=== PATIENT | female | born 1945 | race Hispanic/Latino ===

== ENCOUNTER 2019-06-05 09:20 | Day surgery (SDC) | payer OTHER ==
--- OUTSIDE RECORDS SUMMARY | 2019-06-05 09:27 | XMS REPORT ---
:1945 Author Organization [facility] Address [address] [place] [address] Dr. Porter [address] [place] [address] Care Team Providers Name Role Phone Unavailable Unavailable Unavailable Problems This patient has no known problems. Allergies, Adverse Reactions, Alerts This patient has no known allergies or adverse reactions. Medications This patient has no known medications.
[2019-06-05 09:41] VITALS: TEMP 97.5; O2SAT 100; BMI 21.2
[2019-06-05 09:46] LABS: Hematocrit 26.8 % (36.0-45.0)
[2019-06-05] MEDS ORDERED: EPOETIN ALFA-EPBX 10,000 UNIT/ML VIAL ONE (09:55)
[2019-06-05 10:09] VITALS: BP 221/73
== END 2019-06-05 10:05 | disposition home or self-care (01) ==
LOC: DS 09:20
PROVIDERS: ATTEND Internal Medicine
DX: N18.5 Chronic kidney disease, stage 5 (principal); D63.1 Anemia in chronic kidney disease; D50.9 Iron deficiency anemia, unspecified
CPT/HCPCS: 36415; 85018; 85014; 96372; J0583

== ENCOUNTER 2020-04-20 10:59 | Day surgery (SDC) | payer OTHER ==
--- OUTSIDE RECORDS SUMMARY | 2020-04-20 11:01 | XMS REPORT | Clinical Summary ---
:1945 Author Organization [facility] Address [address] [place] [address] Care Team Providers Name Role Phone Asked, No Pcp Primary Care Provider Unavailable Allergies No Known Active Allergies Medications Medication Sig Dispensed Refills Start Date End Date Status ERGOCALCIFEROL, daily. 0 05/11/2019 Act samuel VITAMIN D2, ORAL rosuvastatin Take 20 mg by 0 03/25/2020 Ac tive (CRESTOR) 20 mg mouth every tablet evening. calcitrioL Take 0.25 mcg by 0 03/22/2020 A ctive (ROCALTROL) 0.25 mouth every other MCG capsule day. dorzolamide take as directed. 0 01/26/2020 Active (TRUSOPT) 2 % ophthalmic solution insulin DETEMIR as needed. Have 0 12/05/2018 Active (LEVEMIR) 100 not used in last unit/mL (3 mL) 8 -10 months- insulin pen Sugar is well controlled by diet per patient docusate sodium Take 1 capsule 14 capsule 0 04/07/2020 020 (Colace) 100 MG (100 mg total) by capsule mouth 2 (two) times a day for 7 days. acetaminophen-codei Take 1 tablet by 15 tablet 0 04/07/2020 ne (TYLENOL WITH mouth every 8 CODEINE #3) 300-30 (eight) hours as mg per needed for tabletIndications: moderate pain for acute pain up to 5 days .acute pain. Active Problems Problem Noted Date ESRD (end stage renal disease) 03/29/2020 Overview: Added automatically from request for megan fox [id number] Encounters Date Type Specialty Care Team Description 04/07/2020 Anesthesia Event General Surgery Adelaida Tarango MD Cheema, Ivelisse, DIRECTOR PHONE 04/07/2020 Surgery General Surgery Trini, Hal Virk MD peritoneal di alysis catheter placem ent. 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 Jeffery Virk MD kidney diseas e not on chronic dialysi s (HCC) (Primary Dx) 03/29/2020 Prep for Surgery General Surgery Tori Rojas ESRD ( end stage renal P, MA disease) (HCC) (Primary Dx) 03/29/2020 Travel 03/14/2020 Travel after 04/20/2019 Surgical History Surgery Date Site/Laterality Comments CATARACT EXTRACTION W/ INTRAOCULAR LENS IMPLANT, BILATERAL OTHER SURGICAL HISTORY EAR SURGE RY - TO FIX A HOLE IN RIGHT EA R BREAST SURGERY 06/10/1986 - Right right breast rem janay 06/09/1987 (CHEMO SAME YEAR ) INSERTION, CATHETER, 04/07/2020 Abdomen/N/A Procedure: Laparoscopic DIALYSIS, PERITONEAL, peritoneal dialysis LAPAROSCOPIC catheter placeme nt.; Surgeon: Jeffery Wright MD; Location: [facility]; Service: General ; Laterality: N/A; Medical History Medical History Date Comments History of breast cancer Renal insufficiency DR RAMOS Hypercholesteremia Type 2 diabetes mellitus (HCC) DIET WHIT GED Wears dentures UPPER Wears glasses Does use hearing aid LEFT Limb alert care status DO NOT RIGHT ARM ARM --LYMPH NODES REMOVED Exercise tolerance finding WALKING AND D OES ALL HOUSE WORK --NO CHEST PAIN Family History Medical History Relation Name Comments Diabetes Maternal Grandmother Relation Name Status Comments Maternal Grandmother Social History Tobacco Use Types Packs/Day Years Used Date Never Smoker Smokeless Tobacco: Never Used Alcohol Use Drinks/Week oz/Week Comments Never Alcohol Habits Answer Date Recorded How often do you have a drink containing alcohol? Never 03/29/2020 How many drinks containing alcohol do you have on a typical Not asked 03/29/2020 day when you are drinking? How often do you have six or more drinks on one occasion? Ne katelynn 03/29/2020 Sex Assigned at Date Recorded Not on file COVID-19 Exposure Response Date Recorded In the last month, have you been in contact with No / Unsure 04/04/2020 10:09 AM CDT someone who was confirmed or suspected to have Coronavirus / COVID-19? Obstetrics History Grav Para Term Pre Abrt (TAB) (SAB) (Ect) Mult Lvng Comments 3 3 3 0 0 0 0 0 0 3 Date Outcome GA Total Labor/2nd/3rd Weight Sex Delivery Anes PTL Karla A 1 A5 Name Clin Labor Term Term Term Last Filed Vital Signs Vital Sign Reading Time Taken Comments Blood Pressure 154/69 04/07/2020 4:15 PM CDT Pulse 75 04/07/2020 4:15 PM CDT Temperature 36.5 C (97.7 F) 04/07/2020 3:14 PM CDT Respiratory Rate 18 04/07/2020 4:15 PM CDT Oxygen Saturation 99% 04/07/2020 4:15 PM CDT Inhaled Oxygen Concentration - - Weight 55.3 kg (122 lb) 04/04/2020 10:28 AM CDT Height 161.9 cm (5' 3.75") 04/04/2020 10:28 AM CDT Body Mass Index 21.11 04/04/2020 10:28 AM CDT Plan of Treatment Health Maintenance Due Date Last Done Comments BREAST CANCER SCREENING 1996 COLONOSCOPY SCREENING 1996 SHINGLES VACCINES (#1) 1996 65+ PNEUMOCOCCAL VACCINE (1 of 1 - PPSV23) 2011 INFLUENZA VACCINE 01/09/2020 Procedures Procedure Name Priority Date/Time Associated Comments Diagnosis POC GLUCOSE Routine 04/07/2020 1:33 Results for this PM CDT procedure are i n the results section. MT AN ELECTIVE Routine 04/07/2020 12:07 Results f or this ENDOTRACHEAL AIRWAY PM CDT procedur e are in the results section. SODIUM LEVEL Routine 04/07/2020 10:10 Results for this AM CDT procedure are i n the results section. ESTIMATED GFR STAT 04/07/2020 8:54 Results fo r this AM CDT procedure are i n the results section. BASIC METABOLIC PANEL STAT 04/07/2020 8:54 Re sults for this AM CDT procedure are i n the results section. POC PANEL Routine 04/07/2020 8:49 Results for this AM CDT procedure are i n the results section. ABO AND RH CONFIRMATION Routine 04/07/2020 8:41 Results for this AM CDT procedure are i n the results section. ECG PRE/POST OP Routine 04/04/2020 11:19 Preop testing Results for this AM CDT procedure are i n the results section. PARTIAL THROMBOPLASTIN Routine 04/04/2020 10:49 Preop testing Results for this TIME (PTT) AM CDT procedure are i n the results section. PROTHROMBIN TIME WITH Routine 04/04/2020 10:49 Preop testing R esults for this INR AM CDT procedure are i n the results section. COVID-19 QUALITATIVE Routine 04/04/2020 10:48 Preop testing Re sults for this PCR AM CDT procedure are i n the results section. ESTIMATED GFR Routine 04/04/2020 10:47 Results fo r this AM CDT procedure are i n the results section. TYPE AND SCREEN Routine 04/04/2020 10:47 Preop testing Results for this AM CDT procedure are i n the results section. HEMOGLOBIN A1C Routine 04/04/2020 10:47 Preop testing Results for this AM CDT procedure are i n the results section. BASIC METABOLIC PANEL Routine 04/04/2020 10:47 Preop testing R esults for this AM CDT procedure are i n the results section. HC COMPLETE BLD COUNT Routine 04/04/2020 10:47 Preop testing R esults for this W/AUTO DIFF AM CDT procedure are i n the results section. after 04/20/2019 Results POC glucose (04/07/2020 1:33 PM CDT) Pathologist Sig nature POC glucose 151 (H) 65 - 99 mg/dL [facility] Comment: [facility] Taker Off Hemp Fiber Name: Juarez Fritz Device ID: [id number] Chartable: RN Notified Specimen Blood Performing Organization Address City/State/ZIP Code Phon e Number [facility] DEPARTMENT OF PATHOLOGY [address] [place] [address] AND GENOMIC MEDICINE [facility] G[facility] [place] [address] [facility] [place] [address] H[facility]PITAL Airway (04/07/2020 12:07 PM CDT) Narrative Performed At Adelaida Tarango MD 020 12:08 PM Airway Date/Time: 04/07/2020 12:04 PM Performed by: Adelaida Tarango MD Authorized by: Adelaida Tarango M D Location: OR Urgency: Elective Difficult Airway: No Anesthesiologist: Adelaida Tarango MD Performed by: anesthesiologist Preoxygenated with 100% O2: Yes C-spine Precautions Maintained Throughou t: Yes Mask Ventilation: Easy mask (with oral airway) Final Airway Type: Endotracheal airway Final Endotracheal Airway: ETT Cuffed: Yes Technique Used: Direct laryngoscopy Devices/Methods Used in Placement: Int ubating stylet Insertion Site: Oral Blade Type: Mk Laryngoscope Blade/Videolaryngoscope Wu de Size: 3 ETT Size (mm): 7.0 Cuff at minimum occlusion pressure: Yes Measured from: Teeth ETT to Teeth (cm): 22 Placement Verified by: CO2 detection and direct visualization Laryngoscopic view: Grade IIb - view o f arytenoids or posterior of glottis only Rapid Sequence Induction (RSI): Yes Modified RSI: No Number of Attempts at Approach: 1 Sodium level (04/07/2020 10:10 AM CDT) Pathologist [facility] nature Sodium 142 135 - 148 mEq/L [facility] AND [facility] Specimen Plasma Performing Organization Address City/State/ZIP Code Phon e Number [facility] DEPARTMENT OF PATHOLOGY [address] [facility] [address] AND [facility] [id number] [place] [address] HOSPITAL Estimated GFR (04/07/2020 8:54 AM CDT)Only the most recent of2 resultswithin the time period is included. Estimated GFR 7 (A) mL/min/1.73 [facility] Comment: m2 [facility] Catergory Units Interpretation HOS PITAL G1 >=90 Normal or high G2 60-89 Mildly decreased G3a 45-59 Mildly to moderately decreas ed G3b 30-44 Moderately to severely decre ased G4 15-29 Severely decreased G5 <15 Kidney failure The eGFR was calculated using the Chronic Kidney Disea se Epidemiology Collaboration (CKD-EPI) equation. Interpretation is based on recommendations of the National Kidney Foundation-Kidney Disease Outcomes Sarbjit lity Initiative (NKF-KDOQI) published in 2014. Specimen Plasma Performing Organization Address [facility] Phon e Number [facility] DEPARTMENT OF PATHOLOGY [address] [place] [address] Basic metabolic panel (04/07/2020 8:54 AM CDT)Only the most recent of2 results within the time period is included. Pathologist Sig nature Sodium 120 (LL) 135 - 148 mEq/L [facility] Comment: [facility] NA,CL results called to and read back by NYDIA AVITIA RN MELIA 04/07/2020 09:57 JH Potassium 4.1 3.5 - 5.0 mEq/L [facility] Chloride 108 98 - 112 mEq/L [facility] CO2 19 (L) 24 - 31 mEq/L [facility] Anion gap -7@ANIO (L) 7 - 15 mEq/L [facility] BUN 55 (H) 8 - 23 mg/dL [facility] Creatinine 5.84 (H) 0.50 - 0.90 [facility] mg/dL [facility] Glucose 121 (H) 65 - 99 mg/dL [facility] Calcium 9.2 8.8 - 10.2 mg/dL [facility] Specimen Plasma Performing Organization Address City/[facility]/ZIP [facility] [place] [place] Phon e Number [facility] DEPARTMENT OF PATHOLOGY [address] [place] [address] POC panel (04/07/2020 8:49 AM CDT) POC sodium 140 135 - 148 [facility] mmol/L [facility] POC potassium 4.1 3.5 - 5.0 [facility] mmol/L [facility] POC glucose 113 (H) 65 - 99 mg/dL [facility] Comment: [place] Taker Off Hemp Fiber Name: [facility] Device ID: [id number] POC hemoglobin 8.8 (L) 12.0 - 16.0 [facility] g/dL [facility] POC hematocrit 26 (L) 37 - 47 % [facility] Specimen Blood Performing Organization Address [facility] Phon e Number [facility] DEPARTMENT OF PATHOLOGY [id number] [place] [address] [address] [place] [address] [facility] ABO and Rh confirmation (04/07/2020 8:41 AM CDT) Pathologist Sig nature ABO grouping O [facility] Rh type POS [facility] Specimen Plasma Performing Organization Address [facility] Phon e Number [facility] DEPARTMENT OF PATHOLOGY [id number] [place] [address] [address] [address] HOSPITAL ECG Pre/Post Op (04/04/2020 11:19 AM CDT) Pathologist Sig nature Ventricular rate 75 [facility] Atrial rate 75 [facility] MT interval 136 [facility] QRSD interval 88 [facility] QT interval 458 [facility] QTC interval 511 [facility] P axis 1 72 [facility] QRS axis 1 49 [facility] T wave axis 77 [facility] EKG impression Normal sinus [facility] rhythm-Prolonged QT-Abnormal ECG-No previous ECGs available-Electronicall y Signed By Madhu Palmer MD ([id number]) on 04/04/2020 3:19:18 PM Specimen Narrative Performed At This result has an attachment that is no t available. Performing Organization Address [facility] Phon e Number [facility] MUSE [address] [place] [address] Partial thromboplastin time, activated (04/04/2020 10:49 AM CDT) PTT 29.3 23.0 - 36.0 [facility] Comment: sec [place] PTT therapeutic range for unfractionated heparin is HOSPITAL 61.0-112.0 seconds which corresponds to Anti-Xa 0.3-0.7 U/ml. Specimen Blood Performing Organization Address [facility] Code Phon e Number [facility] DEPARTMENT OF PATHOLOGY [id number] [place] [address] AND [facility] [id number] [place] [address] [facility] Prothrombin time with INR (04/04/2020 10:49 AM CDT) Prothrombin time 13.9 11.5 - 14.5 [facility] INR 1.1 [place] Comment: [facility] International Normalized Ratio (INR) is a therapeu [facility] monitoring tool for patients who are stable on oral anticoagulant therapy. An INR of 2.0-3.0 is suggested for deep vein thrombosis/pulmonary embolism. Specimen Blood Performing Organization Address [facility] Phon e Number [facility] DEPARTMENT OF PATHOLOGY [address] [facility] [place] [address] AND [facility] [address] [facility] [place] [address] HOSPITAL COVID-19 qualitative PCR (04/04/2020 10:48 AM CDT) Pathologist [facility] Interpretation Negative results do not prec lude 2019-nCoV infection and should not be used as the sole basis for treatment or other patient management decisions. Negative results must be combined with clinical observations, patient history, and epidemiological [place] information. [facility] COVID-19 qualitative Not-Detected Not-Detecte [place] PCR result d [facility] COVID-19 qualitative See link below for [place] PCR PDF Lab [facility] ReportComment: Case HOSPITAL Number: [id number] Specimen Nasal swab Performing Organization Address [facility] Phon e Number [facility] DEPARTMENT OF PATHOLOGY AND [address], [place] [address] [place] [id number] [place] [address] [facility] CBC with platelet and differential (04/04/2020 10:47 AM CDT) WBC 8.5 4.5 - 11.0 k/uL [facility] RBC 2.56 (L) 4.20 - 5.50 [facility] m/uL [facility] HGB 7.9 (L) 12.0 - 16.0 [facility] g/dL [facility] HCT 23.9 (L) 37.0 - 47.0 % [facility] MCV 93.4 82.0 - 100.0 fL [facility] MCH 30.9 27.0 - 34.0 pg [facility] MCHC 33.1 31.0 - 37.0 [facility] g/dL [facility] RDW - SD 43.8 37.0 - 55.0 fL [facility] MPV 12.8 (H) 6.9 - 11.0 fL [facility] Platelet count 105 (L) 150 - 400 K/uL [facility] Nucleated RBC 0.00 /100 WBC [facility] Neutrophils 72.2 (H) 39.0 - 69.0 % [facility] Lymphocytes 16.6 (L) 25.0 - 45.0 % [facility] Monocytes 6.6 0.0 - 10.0 % [facility] Eosinophils 3.7 0.0 - 5.0 % [facility] Basophils 0.7 0.0 - 1.0 % [facility] Immature granulocytes 0.2 0.0 - 1.0 % [facility] Specimen Plasma Performing Organization Address City/[facility] Phon e Number [facility] DEPARTMENT OF PATHOLOGY [id number] [place] [address] AND [place] [id number] HOSPITAL Type and screen (04/04/2020 10:47 AM CDT) Pathologist Sig nature ABO grouping O [facility] Rh type POS [facility] Antibody screen (gel) [facility] Specimen Plasma Performing Organization Address [facility] Phon e Number [facility] DEPARTMENT OF PATHOLOGY [address] [place] [address] Hemoglobin A1c (04/04/2020 10:47 AM CDT) Hemoglobin A1C 5.4 4.0 - 5.6 % [facility] Comment: [place] HbA1c cutoffs for diagnosing diabetes: HO SPITAL 4.0% - 5.6% = normal 5.7% - 6.4% = increased risk for diabetes (prediabetes )9 >=6.5% = diabetes9 Goals for glycemic control (ADA 2016) < 7.0% Target for non adults with diabetes. More or less stringent targets may be appropriate for individual patients. <7.5% Target for Children and adolescents with type 1 diabetes. Specimen Blood Performing Organization Address City/State/ZIP Code Phon e Number [facility] DEPARTMENT OF PATHOLOGY [address] [facility] [place] [address] AND GENOMIC MEDICINE [facility]NY GERBER [place] [address] [facility] 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
--- OUTSIDE RECORDS SUMMARY | 2020-04-20 11:02 | XMS REPORT | Continuity of Care Document ---
:1945 Author Organization [facility] t Address [address] [place] [address] [address] [place] [address] Care Team Providers Name Role Phone Asked, Pcp Primary Care Physician Unavailable Sully Feliz MD Attending Clinician Emelina MANDUJANO, Raciel Attending Clinician Debbi SALDIVAR Attending Clinician Samantha MANDUJANO Attending Clinician Geno Rojas MA Attending Clinician Unavailable Tara MANDUJANO, A Attending Clinician Harshad MANDUJANO, A Attending Clinician JAVAN Admitting Clinician Unavailable Payers Payer Name Policy Type Policy Effective Date Expiration Date Sour ce Number MEDICAREMEDICARE PART [id number] Monico Duarte AND 00:00:00 Yazidi [id number] 2010 [place], [place] [id number] Jason heck OF 00:00:00 Yazidi [id number] 5-PresentCommercial Problems Condition Condition Condition Status Onset Resolution Last Treating Co mments Source Name Details Category Date Date Treatment Clinician Date ESRD (end ESRD (end Disease Active 2019-06 Overview: [facility] stage stage 0-20 Added [facility] renal renal 00:00: automatic st disease) disease) 00 ally from request for surgery [id number] Allergies, Adverse Reactions, Alerts This patient has no known allergies or adverse reactions. Family History Family Member Diagnosis Comments Start Date Stop Date Source Maternal grandmother Diabetes [place] Social History Social Habit Start Date Stop Date Quantity Comments Source Sex Assigned At [facility] ethodist Exposure to Not sure [facility] dist SARS-CoV-2 (event) Tobacco use and 2020-04-08 2020-04-[address] [facility] ethodist exposure 00:00:00 00:00:00 Alcohol intake 2020-04-08 2020-04-08 Lifetime [facility]ist 00:00:00 00:00:00 non-drinker (finding) History SDMT 2020-03-29 2020-03-29 1 [facility] Alcohol Frequency 00:00:00 00:00:00 History SDMT 2020-03-29 2020-03-29 99 [facility] Alcohol Std Drinks 00:00:00 00:00:00 History [facility] 2020-03-29 2020-03-29 1 [facility] Alcohol Binge 00:00:00 00:00:00 Smoking Status Start Date Stop Date Source Never smoker [facility] t Medications Ordered Filled Start Stop Current Ordering Indication Dosage Frequency Signature Comments Components Source Medication Medication Date Date Medication? Clinician (SIG) Name Name docusate 2019-06 2020- No 100mg Q.5D Take 1 [place] on sodium 0-04-14 capsule Method[facility] (Colace) 00:00: 23:59 ([address] 100 MG 00 :00 total) by capsule mouth 2 (two) times a day for 7 days. acetaminoph 2019-06- No acute pain 1{tbl} Q8H Take 1 Mendez en-codeine 0-29 - tablet by Met adi (TYLENOL 00:00: 23:[address] WITH 00 :00 every 8 CODEINE #3) (eight) 300-30 mg hours as per tablet needed for moderate pain for up to 5 days .acute pain. rosuvastati 2019-06 Yes 20mg QD Take 20 mg Mendez n (CRESTOR) 0-16 by mouth Meth manny 20 mg 00:00: every st tablet 00 evening. calcitrioL 2019-06 Yes .25ug Q2D Take 0.25 [place] (ROCALTROL) 0-13 mcg by Method i 0.25 MCG 00:00: mouth st capsule 00 every other day. dorzolamide Yes take as Jason ston (TRUSOPT) 2 8-18 directed. Met hodi % 00:00: st ophthalmic 00 solution ERGOCALCIFE 2018-06 Yes QD daily. Damien josé ROL, 2- [facility] VITAMIN D2, 00:00: st ORAL 00 insulin Yes as needed. Damien josé DETEMIR 6- Have not [facility] (LEVEMIR) 00:00: used in st 100 unit/mL 00 last 8 -10 (3 mL) months- insulin pen Sugar is well controlled by diet per patient Vital Signs Vital Name Observation Time Observation Value Comments Source Systolic blood 2020-04-07 16:15:00 154 mm[Hg] Anila Chaidez pressure Diastolic blood 2020-04-07 16:15:00 69 mm[Hg] Del Chaidez pressure Heart rate 2020-04-07 16:15:00 75 /min Andrea Chaidez Respiratory rate 2020-04-07 16:15:00 18 /min Damien Chaidez Oxygen saturation in 2020-04-07 16:15:00 99 /min Andrea Chaidez Arterial blood by Pulse oximetry Body temperature 2020-04-07 15:14:00 36.5 Ramonita Damien Chaidez Body height 2020-04-04 10:28:00 161.9 cm Andrea Chaidez Body weight 2020-04-04 10:28:00 55.339 kg Andrea Chaidez BMI 2020-04-04 10:28:00 21.11 kg/m2 Andrea Chaidez Procedures Procedure Date / Time Performing Clinician Source Performed POC GLUCOSE 2020-04-07 13:33:00 Jeffery Feliz [place] AN ELECTIVE 2020-04-07 12:07:28 Adelaida Tarango ENDOTRACHEAL AIRWAY [place] SODIUM LEVEL 2020-04-07 10:10:00 Adelaida Tarango odist Raciel BASIC METABOLIC PANEL 2020-04-07 08:54:00 Robert Gorman ESTIMATED GFR 2020-04-07 08:54:00 Robert Gorman odist POC PANEL 2020-04-07 08:49:00 Jeffery Feliz ABO AND RH CONFIRMATION 2020-04-07 08:41:00 Jeffery Feliz ECG PRE/POST OP 2020-04-04 11:19:22 Lisa Werner Met hodist PROTHROMBIN TIME WITH INR 2020-04-04 10:49:00 Lisa Werner PARTIAL THROMBOPLASTIN 2020-04-04 10:49:00 Lisa Werner Yazidi TIME (PTT) COVID-19 QUALITATIVE PCR 2020-04-04 10:48:00 Jeffery Feliz HC COMPLETE BLD COUNT 2020-04-04 10:47:00 Lisa Werner on Yazidi W/AUTO DIFF BASIC METABOLIC PANEL 2020-04-04 10:47:00 Lisa Werner on Yazidi HEMOGLOBIN A1C 2020-04-04 10:47:00 Lisa Werner [facility] TYPE AND SCREEN 2020-04-04 10:47:00 Lisa Werner Met hodist ESTIMATED GFR 2020-04-04 10:47:00 Lisa Werner Met hodist Plan of Care Planned Activity Planned Date Details Comments Source Future Scheduled 2020-01-09 INFLUENZA VACCINE Anila sanchez Yazidi Test 00:00:00 [code = INFLUENZA VACCINE] Future Scheduled 2011 65+ PNEUMOCOCCAL Andrea Yazidi Test 00:00:00 VACCINE (1 of 1 - PPSV23) [code = 65+ PNEUMOCOCCAL VACCINE (1 of 1 - PPSV23)] Future Scheduled 1996 BREAST CANCER Andrea Or thodist Test 00:00:00 SCREENING [code = BREAST CANCER SCREENING] Future Scheduled 1996 COLONOSCOPY SCREENING arnav Yazidi Test 00:00:00 [code = COLONOSCOPY SCREENING] Future Scheduled 1996 SHINGLES VACCINES (#1) Wilton renetta Yazidi Test 00:00:00 [code = SHINGLES VACCINES (#1)] Encounters Start End Encounter Admission Attending Care Care Encounter Source Date/Time Date/Time Type Type Clinicians Facility Department ID 2020-04-07 2020-04-07 Outpatient [facility] 021 [id number] Andrea 00:00:00 00:00:[address] 2020-04-04 2020-04-04 Outpatient OPPERMANN, [facility] [id number] [facility] 00:00:00 00:00:00 JEFFERY 661 Method i 2020-03-29 2020-03-29 Outpatient OPPERMANN, [facility] 2099 [id number] [facility] 00:00:00 00:00:00 JEFFERY 943 Method i 2020-03-29 2020-03-29 Outpatient SAMANTHA, [facility] [id number] [facility] 00:00:00 00:00:00 PONCHO Orr8 Method i 2020-02-10 2020-02-10 [facility] [id number] 10:50:59 23:59:00 Encounter Eliel Spain [id number] Ozan [id number] Silt [id number] 2019-05-29 2019-05-29 Telephone [facility] [id number] 00:00:00 00:00:00 Julio Duarte MULTISPEC [id number] PARTH [id number] K[place]AMA [id number] AND SY [facility] Results Test Description Test Time Test Comments Results Result Comments Source POC panel 2020-04-07 14:18:21 Test Item Value Reference Range Interpretation Comme nts POC sodium (test code = 2947-0) 140 mmol/L 135-148 POC potassium (test code = 4.1 mmol/L 3.5-5 6298-4) POC glucose (test code = 2339-0) 113 mg/dL 65-99 H Water Filtration Technician Name: Roastefan Dutton ID: [id number] POC hemoglobin (test code = 8.8 g/dL 12-16 L 718-7) POC hematocrit (test code = 26 % 37-47 L 4544-3) Lab Interpretation (test code = Abnormal 19046-7) Andrea Perez [id number] 13:36:53 Test Item Value Reference Range Interpretation Comments POC glucose (test code = 151 mg/dL 65-99 H Ope rator Name: [id number]) Juarez Oneil ice ID: [id number] able : RN Notified Lab Interpretation (test Abnormal code = 52217-9) Andrea [id number] 12:07:28Adelaida Tarango MD 04/07/2020 12:08 PMAirway Date/Time: 04/07/2020 12:04 PMPerformed by:Adelaida Tarango MDAuthorized by: Adelaida Tarango MD Location: ORUrgency: ElectiveDifficult Airway: No Anesthesiologist: Adelaida Tarango, MDPerformed by: anesthesiologistPreoxygenated with 100% O2: Yes C- spine Precautions Maintained Throughout: Yes Mask Ventilation: Easy mask (with oral airway)Final Airway Type: Endotracheal airwayFinal Endotracheal Airway: ETTCuffed: Yes Technique Used: Direct laryngoscopyDevices/Methods Used in Placement: Intubating styletInsertion Site: OralBlade Type: MacintoshLaryngoscope Blade/Videolaryngoscope Blade Size: 3ETT Size (mm): 7.0Cuff at minimum occlusion pressure: Yes Measured from: TeethETT to Teeth (cm): 22PlacementVerified by: CO2 detection and direct visualization Laryngoscopic view: Grade IIb - view of arytenoids or posterior of glottis onlyRapid Sequence Induction (RSI): Yes Modified RSI: No Number of Attempts at Approach: 1Houston MethodistSodium [id number] 10:54:01 Test Item Value Reference Range Interpretation Comments Sodium (test code = 2951-2) 142 135- 148 mEq/L [facility] metabolic [id number] 09:58:35 Test Item Value Reference Range Interpretation Comments Sodium (test code = 120 135- 148 mEq/L LL NA,CL results 2951-2) called to and r ead back by NYDIA AVITIA RN MELIA 04/07/2020 09: 57 JH Potassium (test code = 4.1 3.5- 5.0 mEq/L 2823-3) Chloride (test code = 108 98- 112 mEq/L 5-0) CO2 (test code = 2027-9) 19 24- 31 mEq/L L Anion gap (test code = -7@ANIO 7- 15 mEq/L L 22414-6) BUN (test code = 3094-0) 55 mg/dL 8-23 H Creatinine (test code = 5.84 mg/dL 0.5-0.9 H 2160-0) Glucose (test code = 121 mg/dL 65-99 H 2345-7) Calcium (test code = 9.2 mg/dL 8.8-10.2 12196-5) Lab Interpretation (test Abnormal code = 99027-2) Mendez MethodistEstimated [id number] 09:51:27 Test Item Value Reference Range Interpretation Comments Estimated GFR (test 7 mL/min/1.73 m2 A Catpeter ordaryl Units code = 5488) InterpretationG 1 >=90 Paula l or highG2 60-89 Mildly decrease dG3a 45-59 Mil dly to moderately decr utzktU4z 30-44 Moderately to s everely decreasedG4 15-29 Severe ly decreasedG5 <15 Kidney zoraida lureThe eGFR was calcul ated using the Chron Kidney Disease Epidemiology Collaboration ( CKD-EPI) equation. Interpretation is based on recommendati ons of the National dney [facility]-Kidn ey Disease Outcome s Quality Initiat samuel (NKF-KDOQI) [facility]. Lab Interpretation Abnormal (test code = 37106-7) Mendez MethodistABO and Rh [id number] 09:41:00 Test Item Value Reference Range Interpretation Comments ABO grouping (test code = 883-9) O Rh type (test code = 15519-6) POS Mendez MethodistCOVID-19 qualitative [id number] 21:57:29 Test Item Value Reference Range Interpretation Comments Interpretation (test Negative results do code = 6903094) not preclude 2019-nCoV infection and should not be used as the sole basis for treatment or other patient management decisions. Negative results must be combined with clinical observations, patient history, and epidemiological information. COVID-19 qualitative Not-Detected Not-Detected PCR result (test code = 58923-2) COVID-19 qualitative See link below for C ase Number: PCR (test code = PDF Lab Report [id number]) Andrea MethodistECG Pre/Post [id number] 15:19:21 Test Item Value Reference Range Interpretation Comments Ventricular rate (test 75 code = 253) Atrial rate (test code = 75 255) [place] interval (test code = 136 266) QRSD interval (test code 88 = 260) QT interval (test code = 458 264) QTC interval (test code 511 = 265) P axis 1 (test code = 72 267) QRS axis 1 (test code = 49 268) T wave axis (test code = 14 270) EKG impression (test Normal sinus code = 273) rhythm-Prolonged QT-Abnormal ECG-No previous ECGs available-Electronica lly Signed By Poncho Palmer MD ([id number]) on 04/04/2020 3:19:18 PM Andrea MethodistHemoglobin [id number] 12:23:27 Test Item Value Reference Range Interpretation Comments Hemoglobin A1C (test 5.4 % 4-5.6 HbA1c c utoffs for code = 89224-7) diagnosing d iabetes:4.0% - 5.6% = normal 5.7% - 6.4% = increase d risk for diabetes (prediabetes)9> =6.5% = vuhkmjmo1Kaube for glycemic contro l (ADA 2016)< 7.0% Ta rget for non alissa lts with diabetes. More or less stringent targe ts may be appropriate for individual aubrie ents. <7.5% Target for Children and ad olescents with type 1 rosario betes. Andrea MethodistType and [id number] 11:51:00 Test Item Value Reference Range Interpretation Comments ABO grouping (test code = 883-9) O Rh type (test code = 09721-6) POS Antibody screen (gel) (test code = NEG 890-4) Andrea MethodistPartial thromboplastin time, [id number] 11:24:52 Test Item Value Reference Range Interpretation Comments PTT (test code = 29.3 23.0- 36.0 sec PTT thera peutic range for 3173-2) unfractionated heparin is61.0-112.0 se conds which corresponds to Anti-Xa0.3-0.7 U/ml. Andrea MethodistProthrombin time with [id number] 11:24:06 Test Item Value Reference Range Interpretation Comments Prothrombin time (test 13.9 11.5- 14.5 sec code = 5902-2) INR (test code = 1.1 The Interna tional 39869-5) Normalized Rati o (INR) is a therapeutic m onitoring tool for patien ts who are stable on oral anticoagulant t herapy. An INR of 2.0-3.0 is suggested for d eep vein thrombosis/pulm onary embolism. Andrea ChaidezCBC with platelet and [id number] 11:21:18 Test Item Value Reference Range Interpretation Comments WBC (test code = 22751-6) 8.5 4.5- 11.0 k/uL RBC (test code = 38697-2) 2.56 m/uL 4.2-5.5 L HGB (test code = 718-7) 7.9 g/dL 12-16 L HCT (test code = 4544-3) 23.9 % 37-47 L MCV (test code = 787-2) 93.4 fL 82-100 MCH (test code = 785-6) 30.9 pg 27-34 MCHC (test code = 786-4) 33.1 g/dL 31-37 RDW - SD (test code = 06613-2) 43.8 fL 37-55 MPV (test code = 78908-3) 12.8 fL 6.9-11 H Platelet count (test code = 105 K/uL 150-400 L 63571-0) Nucleated RBC (test code = 39361-4) 0.00 /100 WBC Neutrophils (test code = 51469-5) 72.2 % 39-69 H Lymphocytes (test code = 35325-4) 16.6 % 25-45 L Monocytes (test code = 62897-3) 6.6 % 0-10 Eosinophils (test code = 35302-0) 3.7 % 0-5 Basophils (test code = 58224-9) 0.7 % 0-1 Immature granulocytes (test code = 0.2 % 0-1 12581-8) Lab Interpretation (test code = Abnormal 19199-0) Andrea Chaidez
[2020-04-20] MEDS ORDERED: NA CHLORIDE 0.9% 250 ML ONE ×2 (12:28→15:07)
[2020-04-20 15:23] VITALS: BMI 22.1
[2020-04-20 15:56] VITALS: TEMP 99.3
[2020-04-20 17:39] VITALS: BP 219/82; O2SAT 100
[2020-04-20 19:04] LABS: Hematocrit 31.4 % (36.0-45.0)
== END 2020-04-20 18:43 | disposition home or self-care (01) ==
LOC: DS 10:59
PROVIDERS: ATTEND Internal Medicine
DX: D64.9 Anemia, unspecified (principal)
CPT/HCPCS: 36415; 86900; 86850; 86901; 85018; 85014; 36430; P9016 ×2; J7050 ×2

== ENCOUNTER 2022-07-27 19:59 | Emergency (ER) | payer OTHER ==
--- OUTSIDE RECORDS SUMMARY | 2022-07-27 20:03 | XMS REPORT | Continuity of Care Document ---
:1945 Author Organization [facility] t Address [address] [place] [address] Care Team Providers Name Role Phone Roxi Seth Primary Care Physician Claudine Wilkins RN Attending Clinician Unavailable Iva Rosales Attending Clinician Unavailable Doctor Unassigned, [place] Attending Clinician Unavailable ION NAGY Attending Clinician Unavailable Alin Mendiola MD Attending Clinician [phone] ALIN MENDIOLA Attending Clinician Unavailable Jennifer Attending Clinician Unavailable SUDHAKAR EDOUARD Attending Clinician Unavailable MD SUDHAKAR EDOUARD Attending Clinician Unavailable PONCHO DOWELL Attending Clinician Unavailable CRISTAL DHALIWAL Attending Clinician Unavailable AGUILAR BERNAL Attending Clinician Unavailable ASHLEY KOLB Attending Clinician Unavailable GEORGE JANE Attending Clinician Unavailable Jennifer Admitting Clinician Unavailable SUDHAKAR EDOUARD Admitting Clinician Unavailable MD SUDHAKAR EDOUARD Admitting Clinician Unavailable Payers Payer Name Policy Type Policy Number Effective Date Expiration Date S [facility] [id number] Problems Condition Condition Condition Status Onset Resolution Last Treating Co mments Source Name Details Category Date Date Treatment Clinician Date ESRD (end ESRD (end Disease Active 2020-1 Overview: Methodi stage stage 0-[address] renal renal 00:00: g of this Hospita disease) disease) 00 note l might be different from the original. Added automatic ally from request for surgery [id number] No known No known Disease Unive rs active active ity of problems problems [facility] Allergies, Adverse Reactions, Alerts Allergy Allergy Status Severity Reaction(s) Onset Inactive Treating Comm ents Source Name Type Date Date Clinician CODEINE DRUG Active Med N/V 2019-06 Univers INGREDI 07-09 ity of 00:00: [place] 00 [facility] Codeine Propensi Active Nausea 2019-06 Univers ty to and/or 07-09 ity of adverse Vomiting 00:00: [place] reaction 00 Medical s Branch NO KNOWN Drug Active Univers ALLERGIE Class ity of S [facility] Family History Family Member Diagnosis Comments Start Date Stop Date Source Maternal grandmother Diabetes Meth [facility] Social History Social Habit Start Date Stop Date Quantity Comments Source History [facility] o f Alcohol Comment [facility] Tobacco use and 2020-05-10 2020-05-10 Never used Universit y of exposure 00:00:00 00:00:00 [facility] Alcohol intake 2020-04-08 2020-04-08 Lifetime [facility] 00:00:00 00:00:00 non-drinker (finding) History [facility] 2020-04-07 2020-04-07 [facility] Frequency 00:00:00 00:00:00 History [facility] 2020-04-07 2020-04-07 [facility] Alcohol Std 00:00:00 00:00:00 Drinks History [facility] 2020-04-07 2020-04-07 [facility] Alcohol Binge 00:00:00 00:00:00 [birth year] [facility] 00:00:00 00:00:00 Smoking Status Start Date Stop Date Source Never smoker [facility] Medications Ordered Filled Start Stop Current Ordering Indication Dosage Frequency Signature Comments Components Source Medication Medication Date Date Medication? Clinician (SIG) Name Name calcitrioL 2019-06 Yes .25ug Take 0.25 U nivers 0.25 mcg 2-01 mcg by ity of capsule 13:09: mouth [place] 18 daily. Medical Branch lisinopriL 2019-06 Yes 10mg Take 10 mg U nivers 10 mg 2-01 by mouth ity of tablet 13:09: as needed [place] 18 (Patient Medical takes if Branch systolic B/P over 150). sodium 2019- Yes 10g Take 10 g Univer s zirconium 2-01 by mouth ity of cyclosilica 13:09: every [place] te 18 other day. Medical (LOKELVA) Branch 10 gram packet calcium 2019- Yes 1{tbl} Take 1 Univer s carbonate 2-01 tablet by ity o f (TUMS) 200 13:09: mouth 3 [place] mg calcium 18 (three) Medica l (500 mg) times Branch chewable daily. tablet rosuvastati 2019-06 Yes 20mg QD Take 20 mg Methodi n (CRESTOR) 0-[address] 20 mg 00:00: every Hospita tablet 00 evening. l calcitrioL 2019- Yes .25ug Q2D Take 0.25 M ethodi (ROCALTROL) 0-[address] 0.25 MCG 00:00: mouth Hospita capsule 00 every l other day. dorzolamide Yes take as Met hodi (TRUSOPT) 2 8-[address] % 00:00: Hospita ophthalmic 00 l solution dexAMETHaso 2018-06 Yes [id number][drp] Place 4 Univers ne 0.1 % 2-18 Drops in ity of ophthalmic 00:00: [place] ear [place] suspension 00 2 (two) Medica l drops times Branch daily. ERGOCALCIFE 2018- Yes QD daily. Meth manny ROL, 2-02 st VITAMIN D2, 00:00: Hospit a ORAL 00 l bacitracin 2018- Yes [id number] Apply to Univers 500 9-30 area(s) 2 ity of unit/gram 00:00: (two) [place] ointment 00 times Medical daily. Branch Apply to post-auric ular incision 2 (two) times daily. dorzolamide 2018- Yes Univer s 2 % 9-27 ity of ophthalmic 00:00: [place] solution 00 Medical Branch VITAMIN D2 2019-0 Yes Univers 50,000 unit 9-24 ity of capsule 00:00: [place] 00 Medical Branch brimonidine 2019-0 Yes Univer s 0.15 % 9-17 ity of ophthalmic 00:00: [place] drops 00 Medical Branch LEVEMIR 2019-0 Yes Univers FLEXTOUCH 6-28 ity of U-100 00:00: [place] INSULN 100 00 Medical unit/mL (3 Branch mL) injection insulin Yes as needed. Meth manny DETEMIR 6-[address] (LEVEMIR) 00:00: used in Hospi ta 100 unit/mL 00 last 8 -10 l (3 mL) months- insulin pen Sugar is well controlled by diet per patient rosuvastati Yes 5mg 5 mg. Unive rs n 20 mg 4-30 ity of tablet 00:00: [place] 00 [facility] Immunizations Ordered Filled Immunization Date Status Comments Sour e Immunization Name Name SARS-COV-2 COVID-19 2020-09-20 Completed Unive rsity of PFIZER VACCINE 00:00:00 [facility] SARS-COV-2 COVID-19 2020-08-30 Completed Unive rsity of PFIZER VACCINE 00:00:00 [facility] Vital Signs Vital Name Observation Time Observation Value Comments Source Body height 2021-10-12 14:24:00 162.6 cm [facility] Body weight 2021-10-12 14:24:00 56.7 kg [facility] BMI 2021-10-12 14:24:00 21.46 kg/m2 [facility] Procedures Procedure Date / Time Performing Clinician Source Performed AUTHORIZATION FOR 2021-09-19 05:01:00 Doctor Unassigned, No [facility] [place] RE[facility] OF PHI Name [facility] Plan of Care Planned Activity Planned Date Details Comments Source Future Scheduled 2022-06-[address] [facility] Test 00:00:00 (12+) [code = [facility] DEPRESSION SCREENING (12+)] Future Scheduled 2022-06-10 FALLS RISK SCREENING [facility] Test 00:00:00 [code = FALLS RISK Medical C enter SCREENING] Future Scheduled 2022-05-27 COVID-19 VACCINE (#1) [facility] Test 12:55:03 [code = COVID-19 VACCINE (#1)] Future Scheduled 2022-05-27 65+ P[facility]UMOCOCCAL [facility] Test 12:55:03 VACCINE (1 - PCV) [code = 65+ PNEUMOCOCCAL VACCINE (1 - PCV)] Future Scheduled 2022-05-27 Hepatitis C screening [facility] Test 12:55:03 (procedure) [code = 916805938] Future Scheduled 2022-05-27 SHINGLES VACCINES (1 Met [facility] Test 12:55:03 of 2) [code = SHINGLES VACCINES (1 of 2)] Future Scheduled 2022-05-27 COLONOSCOPY SCREENING [facility] Test 12:55:03 [code = COLONOSCOPY SCREENING] Future Scheduled 2022-05-27 INFLUENZA VACCINE Method ist Hospital Test 12:55:03 [code = INFLUENZA VACCINE] Future Scheduled 2022-02-08 INFLUENZA VACCINE (#1) [facility] 00:00[facility]00 [code = INFLUENZA Medical Ce nter VACCINE (#1)] Future Scheduled 2021-02-20 COVID-19 VACCINE (3 - [facility] 00:00:00 Booster for Pfizer Medical C enter series) [code = COVID-19 VACCINE (3 - Booster for Pfizer series)] Future Scheduled 2011 PNEUMOCOCCAL 65+ YRS [facility] Test 00:00:00 (1 - PCV) [code = Medical Ce nter PNEUMOCOCCAL 65+ YRS (1 - PCV)] Future Scheduled 1996 SHINGLES VACCINES ([address] [facility] Test 00:00:00 of 2) [code = SHINGLES Medic al Center VACCINES (1 of 2)] Future Scheduled 1965 DTAP/TDAP/TD VACCINES [facility] 00:00:00 (1 - Tdap) [code = Medical C enter DTAP/TDAP/TD VACCINES (1 - Tdap)] Future Scheduled 1964 HEPATITIS C SCREENING [facility] 00:00:00 [code = HEPATITIS C Medical Center SCREENING] Future Scheduled [address] [facility] Test 00:00:00 Counseling and Medical Cente r Screening (12+) [code = Tobacco Cessation Counseling and Screening (12+)] Future Scheduled 1945 DXA SCAN [code = DXA [facility] Test 00:00:00 SCAN] Medical Center Encounters Start End Encounter Admission Attending Care Care Encounter Source Date/Time Date/Time Type Type Clinicians Facility Department ID 2021-10-19 2021-10-19 Telephone SHARON Wilkins [id number] 00[facility]00 00[facility]00[facility]00 [facility] 2021-10-17 2021-10-17 Telephone Claudette [facility] [id number] 00:[facility]00 00:00:00 [facility] 2021-10-12 2021-10-12 [facility] [id number] [facility] St 00:00:00 00:00:00 [facility] 2021-09-19 2021-09-19 Orders Doctor ANTHONY [id number] Univers 00:00:00 00:00:00 Only Unassigned, [id number] [facility] [place] [facility] [id number] Brayan as [id number] [address] 2020-09-20 2020-09-20 [facility] [id number] Univers 12:00:00 12:00:[address] [facility] 2020-08-30 2020-08-30 Outpatient [facility] [id number] [facility] 11:00:00 11:00:00 [facility] 2020-05-12 2020-05-12 Orders Doctor ANTHONY [id number] 00:00:00 00:00:00 Only Unassigned, BARRY [id number] [place] [facility] [id number] 2020-05-10 2020-05-10 Office [facility] [id number] 12:48:01 14:50:07 Visit Alin claire MULTIS[facility] [id number] IALTY [id number] CENTER [id number] [facility] 2020-05-10 2020-05-10 Outpatient Doug STEIN [facility] [id number] Univers 13:00:00 13:00:[address] [facility] 2020-05-10 2020-05-10 Outpatient Raju_P [facility] [id number] [place] 04:28:00 04:28:00 [facility] 2020-04-07 2020-04-07 Outpatient OPPERMANN, [place] [id number] [place] 00:00:00 00:00:00 SUDHAKAR 545 Method i 2020-04-04 2020-04-04 Outpatient OPPERMANN, [facility] [id number] [place] 00:00:00 00:00:00 SUDHAKAR 661 Method i 2020-03-29 2020-03-29 Outpatient OPPERMANN, [facility] [id number] [place] 00:00:00 00:00:00 SUDHAKAR 943 Method i 2020-03-29 2020-03-29 Outpatient YAAKOVIAN, [facility] [id number] [place] 00:00:00 00:00:00 PONCHO Orr8 Method i 2020-03-15 2020-03-15 Outpatient R ISRA, [facility] [id number] Univers 15:15:00 15:15:[address] [facility] 2020-02-10 2020-02-10 [facility] [id number] Univers 00:00:00 00:00:[address] [facility] 2019-09-30 2019-09-30 [facility] [id number] Univers 14:30:00 14:30:[address] [facility] 2019-08-26 2019-08-26 [facility] [id number] Univers [facility] Test Description Test Time Test Comments Results Result Comments Source SARS-CoV-2 (COVID-19) RNA [Presence] in Respiratory sp ecimen by 2020-04-04 21:57:16 BRANDI with probe detection Test Item Value Reference Range Interpretation Comme nts SARS-CoV-2 (COVID-19) RNA [Presence] in Respiratory Not detected No t-Detected specimen by BRANDI with probe detection (test code = 07823-2) [facility]
[2022-07-27] MEDS ORDERED: TENECTEPLASE 50 MG/10 ML VIAL IV ONE (20:19)
[2022-07-27 20:25] LABS: Absolute Lymphocytes (CBC) 2.6 K/uL (0.7-4.9); Hematocrit 36.6 % (36.0-45.0); MCV 90.5 fL (80-100); MPV 10.9 fL (7.6-11.3); Protime INR 0.82; RBC Red Blood Cell Count 4.04 M/uL (3.86-4.86)
[2022-07-27 20:43] LABS: Sodium Level 130 mmol/L (136-145)
[2022-07-27 20:44] LABS: BUN Blood Urea Nitrogen 56 mg/dL (7-18); Bicarbonate 27 mmol/L (21-32); Glomerular Filtration Rate 3 ml/min (=/>90); Glucose Level 228 mg/dL (74-106); Potassium 3.6 mmol/L (3.5-5.1)
[2022-07-27 20:45] LABS: ALT/SGPT 28 U/L (13-56); AST/SGOT 35 U/L (15-37); Alkaline Phosphatase 121 U/L (45-117); Bilirubin Total 0.3 mg/dL (0.2-1.0)
--- NOTE | 2022-07-27 20:45 | RAD REPORT ---
EXAM DESCRIPTION: CT - Ct Stroke Brain Wo Cont - 07/27/2022 8:27 pm CLINICAL HISTORY: STROKE ALERT COMPARISON: No comparisons TECHNIQUE: Noncontrast head CT images ad were obtained without IV contrast. Multiplanar reformats we re generated and reviewed. All CT scans are performed using dose optimization technique as appropriate and may include automated exposure control or mA/KV adjustment according to patient size. FINDINGS: No intracranial hemorrhage, mass, or edema. Midline structures are unremarkable. Normal ventricular caliber for age. Hypoattenuation in the left temporoparietal region with loss of coffman-white matter differentiation sug gestive of a subacute infarct. Limited mass effect with effacement of the sulci in that region. . No abnormal extra-axial fluid collections. Mastoid air cells and visualized portions of the paranasal sinuses are clear. No acute bony findings. IMPRESSION: No evidence of acute intracranial hemorrhage. Hypoattenuation and loss of coffman-white matter differentiation in the left temporoparietal region, sug gestive of a subacute infarct. The findings were communicated to Aparna Kim MD on 07/27/2022 at 20:15 hours.
[2022-07-27 20:46] LABS: Albumin 3.1 g/dL (3.4-5.0); Bilirubin Direct < 0.1 mg/dL (0-0.2); Magnesium 3.4; Protein, Total 7.2 g/dL (6.4-8.2)
[2022-07-27 20:48] LABS: Troponin High Sensitivity 200.8 (<58.9)
--- NOTE | 2022-07-27 20:55 | RAD REPORT ---
EXAM DESCRIPTION: CT - Head angio - 07/27/2022 8:28 pm CLINICAL HISTORY: APHASIA COMPARISON: Ct Stroke Brain Wo Cont dated 07/27/2022; Neck Angio dated 07/27/2022 TECHNIQUE: CT angiography of the head was performed with MIPs. Images obtained following intravenous administration of 100 mL Isovue [address] All [address] scans are performed using dose optimization technique as appropriate and may include automated exposure control or mA/KV adjustment according to patient size. FINDINGS: No evidence of large vessel occlusion. No evidence of aneurysm or a dissection flap is det ected. No flow-limiting stenosis along the anterior and posterior circulations. No vascular malformat ion identified. Mild burden of atherosclerotic calcifications along the carotid siphons bilaterally. Antegrade flow is seen in the vertebral arteries. The vertebral arteries are codominant. The visualized dural venous sinuses are patent. IMPRESSION: No evidence of large vessel occlusion or hemodynamically significant stenosis.
--- NOTE | 2022-07-27 21:05 | RAD REPORT ---
EXAM DESCRIPTION: CT - Neck Angio - 07/27/2022 8:28 pm CLINICAL HISTORY: stroke COMPARISON: Head angio dated 07/27/2022; Ct Stroke Brain Wo Cont dated 07/27/2022 TECHNIQUE: CT angiography of the neck vessels was performed with MIPs. All CT scans are performed using dose optimization technique as appropriate and may include automated exposure control or mA/KV adjustment according to patient size. 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 No significant flow abnormality is seen of the common carotid bilaterally. Moderate hilar calcifications at the right carotid bifurcation, with the narrowest diameter currently measuring 2.4 millimeter compared to 4.6 millimeter distally, outlining. Degree of stenosis of 48% b y NASCET criteria. No significant atherosclerotic calcifications along the proximal left ICA, and no significant stenosis. Normal flow is seen within both vertebral arteries. Tortuosity seen along the proximal left vertebral artery. Multiple small bilateral hypoattenuating thyroid nodules, the largest at the left lower pole measurin g 1.4 centimeter. IMPRESSION: Moderate right proximal ICA atherosclerotic calcifications, with 48% stenosis by NASCET criteria. No significant stenosis of the left cervical ICA and bilateral vertebral arteries.
--- NOTE | 2022-07-27 21:56 | EDPHYS ---
Physician Documentation [facility] Name: Lily Fung Age: 77 yrs Sex: Female : 1945 Arrival Date: 07/27/2022 Time: 20:03 Bed 7 Private MD: ED Physician Aparna Kim HPI: 07/27 20:54 This 77 yrs old Female presents to ER via EMS with complaints of difficulty sd2 speaking. 20:54 77-year-old female presents via EMS with chief complaint of difficulty speaking. Family sd2 at bedside reports that the patient started experiencing some generalized weakness around noon or 1 PM this afternoon. She then started around 6:30 PM with expressive aphasia and not able to speak the right words or make sense. The patient otherwise has not had any notable deficits including weakness or numbness. The patient denies any pain. No prior history of strokes and the patient is not currently on any known blood thinners.. Historical: - Allergies: 20:10 No Known Allergies; bb - Home Meds: 20:10 Levemir 100 unit/mL subcutaneous soln [Active]; amlodipine oral [Active]; Lasix Oral bb [Active]; Lisinopril Oral [Active]; - PMHx: 20:10 Diabetes - IDDM; Hypertensive disorder; End stage renal disease; Dialysis; bb 23:53 neuropathy; as6 - Immunization history:: Adult Immunizations unknown. - Social history:: Smoking status: unknown. ROS: 20:55 Constitutional: Negative for fever, chills, and weight loss, Eyes: Negative for injury, sd2 pain, redness, and discharge, Cardiovascular: Negative for chest pain, palpitations, and edema, Respiratory: Negative for shortness of breath, cough, wheezing. Abdomen/GI: Negative for abdominal pain, nausea, vomiting, diarrhea. MS/Extremity: Negative for injury and deformity, Skin: Negative for injury, rash, and discoloration, Neuro: Negative for headache, numbness and tingling. Positive for speech difficulty. Exam: 20:55 Constitutional: This is a well developed, well nourished patient who is awake, alert, sd2 and in no acute distress. Head/Face: Normocephalic, atraumatic. Eyes: EOMI, normal conjunctiva bilaterally Chest/axilla: Normal chest wall appearance and motion. Nontender with no deformity. Cardiovascular: Regular rate and rhythm with a normal S1 and S2. No gallops, murmurs, or rubs. 2+ distal pulses. Respiratory: Lungs have equal breath sounds bilaterally, clear to auscultation and percussion. No rales, rhonchi or wheezes noted. No increased work of breathing, no retractions or nasal flaring. Abdomen/GI: Soft, non-tender, with normal bowel sounds. No guarding or rebound. No evidence of tenderness throughout. Skin: Warm, dry with normal turgor. Normal color with no rashes, no lesions, and no evidence of cellulitis. MS/ Extremity: Pulses equal, no cyanosis. Neurovascular intact. Full, normal range of motion. Ambulatory without difficulty. Neuro: Awake and alert, expressive aphasia noted with word salad, 5/5 strength in all 4 extremities, sensation intact, FTN intact 20:55 ECG was reviewed by the Attending Physician. NSR, rate 80, no STEMI criteria sd2 Vital Signs: 20:07 BP 175 / 90; Pulse 75; Resp 16 S; Pulse Ox 100% on R/A; Weight 63.5 kg (R); Height 5 bb ft. 4 in. (162.56 cm) (R); 20:47 Weight 57.15 kg; as6 21:00 BP 165 / 59; Pulse 82; Resp 12 S; Pulse Ox 100% on R/A; as6 21:51 BP 155 / 66; Pulse 75; Resp 14 S; Pulse Ox 100% on R/A; as6 23:39 BP 159 / 57; Pulse 81; Resp 15 S; Pulse Ox 100% on R/A; as6 20:47 Body Mass Index 21.63 (57.15 kg, 162.56 cm) as6 20:07 estimated weight and height bb NIH Stroke Scale Scores: 20:45 NIHSS Score: 5 as6 22:24 NIHSS Score: 3 as6 MDM: 20:08 Patient medically screened. sd2 20:50 Management of patient was discussed with the following: Machinery Mover: Neurologist, Dr. sveta Bueno, agrees with decision to give TNK. No obvious contraindications at this time. Risks and benefits discussed in detail with patient and family. Pt would like to proceed with receiving TNK. . 20:55 Data reviewed: vital signs, nurses notes, EMS record, EKG. Discussion of test sd2 interpretation with radiology: I had a discussion with radiology regarding a test interpretation. Discussed CT findings with hypodensity with radiologist. Historians other than the Patient: EMS: provides report. Daughter/Son: provide further history. 21:52 Independent interpretation of the following test(s) in the Emergency Department EKG: sd2 See my EKG interpretation above X-Ray: My interpretation is no acute change. CT Scan: My interpretation is no bleed. phototypesetting equipment monitor: rate is 80 beats/min, Rhythm is normal sinus rhythm, with no ectopy, Interpretation: normal rate, normal rhythm, Rhythm Strip Interpretation Rate: 80BPM Rhythm: regular. 21:53 Differential Diagnosis Dehydration, electrolyte abnormality, UTI, PNA, anemia among sd2 others. Data reviewed: lab test result(s), radiologic studies. I considered the following discharge prescriptions or medication management in the emergency department Medications were administered in the Emergency Department. See MAR. Care significantly affected by the following chronic conditions: Diabetes, Hypertension. 22:39 Medication response: TNK. Response to treatment: the patient's symptoms have mildly sd2 improved after treatment. ED course: Discussed case with Neuro ICU physician at [facility] who accepts the patient for transfer at this time. pt stable for transfer and in agreement with treatment plan. . 07/27 20:21 Order name: Basic Metabolic Panel; Complete Time: 20:49 sd2 07/27 20:21 Order name: CBC with Diff; Complete Time: 20:45 sd2 07/27 20:21 Order name: Hepatic Function; Complete Time: 20:49 sd2 07/27 20:21 Order name: High Sensitivity Troponin; Complete Time: 20:49 sd2 07/27 20:21 Order name: Magnesium; Complete Time: 20:49 sd2 07/27 20:21 Order name: Protime (+inr); Complete Time: 20:45 sd2 07/27 20:21 Order name: Ptt, Activated; Complete Time: 20:45 sd2 07/27 20:21 Order name: CT Stroke Brain w/o Contrast; Complete Time: 20:49 sd2 07/27 20:21 Order name: Stroke CXR 1 View; Complete Time: 22:38 sd2 07/27 20:21 Order name: CT Head Angio; Complete Time: 21:11 sd2 07/27 20:21 Order name: CT Neck Angio; Complete Time: 21:11 sd2 07/27 21:04 Order name: CREATININE WHOLE BLOOD; Complete Time: 21:11 EDMS 07/27 21:40 Order name: SARS RAPID; Complete Time: 22:38 as6 07/27 20:21 Order name: EKG; Complete Time: 20:22 2 07/27 20:21 Order name: Accucheck; Complete Time: 20:48 07/27 20:21 Order name: Cardiac monitoring; Complete Time: 20:48 07/27 20:21 Order name: EKG - Nurse/Tech; Complete Time: 20:48 07/27 20:21 Order name: IV Saline Lock; Complete Time: 20:48 07/27 20:21 Order name: Labs collected and sent; Complete Time: 20:48 07/27 20:21 Order name: NPO; Complete Time: 20:50 07/27 20:21 Order name: O2 Per Protocol; Complete Time: 20:48 07/27 20:21 Order name: O2 Sat Monitoring; Complete Time: 20:48 07/27 20:21 Order name: Stroke Swallow Screen; Complete Time: 21:05 sd2 Administered Medications: 20:45 Drug: TNK FOR STROKE - Tenecteplase 0.25 mg/kg {Co-Signature: tw5 (Maggy combsTamir Carmona).} Route: IV; Rate: per protocol; Site: left antecubital; 07/28 01:46 Follow up: Response: No adverse reaction; IV Status: Completed infusion; IV Intake: as6 2.8ml Disposition Summary: 07/27/22 21:55 Transfer Ordered Reason: Higher level of care sd2 Condition: Stable sd2 Problem: new sd2 Symptoms: are unchanged sd2 Transfer Location: [facility]-System(07/27/22 22:40) sd2 Accepting Physician: [facility] Physician(07/28/22 01:47) as6 Diagnosis - Expressive aphasia sd2 - Cerebrovascular accident sd2 Forms: - Medication Reconciliation Form sd2 - SBAR form sd2 Critical care time excluding procedures: 07/27 22:41 Critical care time: Bedside Care: 35 minutes, Consultation: 15 minutes, Family sd2 Intervention: 10 minutes. Total time: 60 minutes NIH Stroke Scale - NIH Stroke Score Date: 07/27/2022 Time: 20:45 Total Score = 5 1a. Level of Consciousness (LOC) - 0(Alert) 1b. Level of Consciousness (LOC) (Month \T\ Age) - 2(Neither) 1c. LOC Commands (Open \T\ Closes Eyes/Research Professor Of Biostatistics) - 0(Both) 2. Best Gaze (Lateral Gaze Paresis) - 0(Normal) 3. Visual Field Loss - 0(No visual loss) 4. Facial Palsy - 0(Normal) 5a. Left Arm: Motor (10-second hold) - 0(No drift) 5b. Right Arm: Motor (10-second hold) - 0(No drift) 6a. Left Leg: Motor (5-second hold - always test supine) - 0(No drift) 6b. Right Leg: Motor (5-second hold - always test supine) - 0(No drift) 7. Limb Ataxia (finger/nose \T\ heel/vincent - test with eyes open) - 0(Absent) 8. Sensory Loss (pinprick arms/legs/face) - 0(Normal) 9. Best Language: Aphasia (description/naming/reading) - 1(Mild to moderate aphasia) 10. Dysarthria (speech clarity - read or repeat words) - 2(Severe) 11. Extinction and Inattention (visual/tactile/auditory/spatial/personal) - 0(No abnormality) Initials: as6 NIH Stroke Scale - NIH Stroke Score Date: 07/27/2022 Time: 22:24 Total Score = 3 1a. Level of Consciousness (LOC) - 0(Alert) 1b. Level of Consciousness (LOC) (Month \T\ Age) - 1(One) 1c. LOC Commands (Open \T\ Closes Eyes/Research Professor Of Biostatistics) - 0(Both) 2. Best Gaze (Lateral Gaze Paresis) - 0(Normal) 3. Visual Field Loss - 0(No visual loss) 4. Facial Palsy - 0(Normal) 5a. Left Arm: Motor (10-second hold) - 0(No drift) 5b. Right Arm: Motor (10-second hold) - 0(No drift) 6a. Left Leg: Motor (5-second hold - always test supine) - 0(No drift) 6b. Right Leg: Motor (5-second hold - always test supine) - 0(No drift) 7. Limb Ataxia (finger/nose \T\ heel/vincent - test with eyes open) - 0(Absent) 8. Sensory Loss (pinprick arms/legs/face) - 0(Normal) 9. Best Language: Aphasia (description/naming/reading) - 1(Mild to moderate aphasia) 10. Dysarthria (speech clarity - read or repeat words) - 1(Mild to Moderate) 11. Extinction and Inattention (visual/tactile/auditory/spatial/personal) - 0(No abnormality) Initials: as6 Signatures: Dispatcher [employer] EDMS Shefali Gama RN RN bb Darrell Schwartz RN RN as6 Aparna Kim MD MD sd2 Maggy Carmona tw5 Corrections: (The following items were deleted from the chart) 22:40 21:55 [facility] Physician sd2 sd2 22:40 21:55 [facility] sd2 sd2 07/28 01:47 07/27 22:40 [facility] Physician sd2 as6
--- NOTE | 2022-07-27 21:56 | ER ---
Nurse's Notes [facility] Name: Lily Fung Age: 77 yrs Sex: Female : 1945 Arrival Date: 07/27/2022 Time: 20:03 Bed 7 Private MD: Diagnosis: Expressive aphasia;Cerebrovascular accident Presentation: 07/27 20:07 Chief complaint: EMS states: they were toned out for report of pt with sudden onset of bb difficulty speaking with a short episode of blurred vision symptoms started an hour prior to their arrival. Coronavirus screen: At this time, the client does not indicate any symptoms associated with coronavirus-19. Ebola Screen: No symptoms or risks identified at this time. Initial Sepsis Screen: Does the patient meet any 2 criteria? No. Patient's initial sepsis screen is negative. Does the patient have a suspected source of infection? No. Patient's initial sepsis screen is negative. Risk Assessment: Do you want to hurt yourself or someone else? Patient reports no desire to harm self or others. Onset of symptoms was July 27, 2022. 20:07 Method Of Arrival: EMS: [facility] bb 20:07 Acuity: KAREN 1 bb 20:13 Care prior to arrival: IV initiated. 20 GA, in the left antecubital area, Glucose bb check: 237. Historical: - Allergies: 20:10 No Known Allergies; bb - Home Meds: 20:10 Levemir 100 unit/mL subcutaneous soln [Active]; amlodipine oral [Active]; Lasix Oral bb [Active]; Lisinopril Oral [Active]; - PMHx: 20:10 Diabetes - IDDM; Hypertensive disorder; End stage renal disease; Dialysis; bb 23:53 neuropathy; as6 - Immunization history:: Adult Immunizations unknown. - Social history:: Smoking status: unknown. Screenin:45 [facility] ED Fall Risk Assessment (Adult) Score/Fall Risk Level 3 or more points = High as6 Risk. Abuse screen: Denies threats or abuse. Denies injuries from another. Nutritional screening: No deficits noted. Tuberculosis screening: No symptoms or risk factors identified. The patient has not been NPO before screening. The patient is currently on the following diet: regular The patient is alert, able to follow commands. The patient exhibits slurred or garbled speech. The patient is exhibiting difficulty speaking. The patient does not exhibit difficulty understanding words. The patient is able to swallow own secretions with no drooling or need for suction. Patient tolerated one teaspoon of water. No drooling, immediate coughing, gurgling, or clearing of the throat was noted. The patient tolerated 90mL of water. No drooling, immediate coughing, gurgling, or clearing of the throat was noted. The patient passed the bedside swallow screening. Oral medications may be given as ordered. Contact Physician for further diet orders. Provider notified of bedside swallow screening results: Aparna Kim MD. Assessment: 20:45 General: Appears in no apparent distress. Behavior is calm, cooperative. Pain: Denies as6 pain. Neuro: Level of Consciousness is awake, alert, obeys commands, Speech is slurred, with expressive aphasia noted. 20:45 Cardiovascular:. Respiratory: Respiratory effort is even, unlabored, Respiratory as6 pattern is regular, symmetrical. 21:53 General: family and pt updated on plan of care . as6 23:19 Reassessment: report given to Pepper JACOB at receiving facility. bb Vital Signs: 20:07 BP 175 / 90; Pulse 75; Resp 16 S; Pulse Ox 100% on R/A; Weight 63.5 kg (R); Height 5 bb ft. 4 in. (162.56 cm) (R); 20:47 Weight 57.15 kg; as6 21:00 BP 165 / 59; Pulse 82; Resp 12 S; Pulse Ox 100% on R/A; as6 21:51 BP 155 / 66; Pulse 75; Resp 14 S; Pulse Ox 100% on R/A; as6 23:39 BP 159 / 57; Pulse 81; Resp 15 S; Pulse Ox 100% on R/A; as6 20:47 Body Mass Index 21.63 (57.15 kg, 162.56 cm) as6 20:07 estimated weight and height bb NIH Stroke Scale Scores: 20:45 NIHSS Score: 5 as6 22:24 NIHSS Score: 3 as6 ED Course: 20:03 Patient arrived in ED. ds4 20:05 Initial lab(s) drawn, by ED staff, sent to lab. bb 20:08 Aparna Kim MD is Attending Physician. sd2 20:09 Maggy Carmona is Primary Nurse. tw5 20:10 Triage completed. bb 20:10 Arm band placed on Patient placed pt taken to CT immediately on arrival by EMS. bb 20:29 CT Stroke Brain w/o Contrast In Process Unspecified. EDMS 20:29 CT Head Angio In Process Unspecified. EDMS 20:29 CT Neck Angio In Process Unspecified. EDMS 21:33 Stroke CXR 1 View In Process Unspecified. EDMS 21:47 Maintain EMS IV. Dressing intact. Good blood return noted. Site clean \T\ dry. Gauge \T\ as 6 site: 20G LAC. 21:48 Placed in gown. Bed in low position. Call light in reach. Side rails up X2. Adult w/ as6 patient. Client placed on continuous cardiac and pulse oximetry monitoring. NIBP monitoring applied. Warm blanket given. 23:40 No provider procedures requiring assistance completed. Patient transferred, IV remains as6 in place. Administered Medications: 20:45 Drug: TNK FOR STROKE - Tenecteplase 0.25 mg/kg {Co-Signature: patricia5 (Maggy Carmona).} Route: IV; Rate: per protocol; Site: left antecubital; 07/28 01:46 Follow up: Response: No adverse reaction; IV Status: Completed infusion; IV Intake: as6 2.8ml Medication: 07/27 21:08 VIS not applicable for this client. as6 Intake: 07/28 01:46 IV: 3ml; Total: 3ml. as6 Outcome: 07/27 21:55 ER care complete, transfer ordered by . sd2 23:40 Condition: stable as6 23:40 Instructed on the need for transfer. 07/28 01:36 Transferred by ground EMS to [facility], Transfer form as6 completed. X-rays sent w/ patient. 01:47 Patient left the ED. as6 NIH Stroke Scale - NIH Stroke Score Date: 07/27/2022 Time: 20:45 Total Score = 5 1a. Level of Consciousness (LOC) - 0(Alert) 1b. Level of Consciousness (LOC) (Month \T\ Age) - 2(Neither) 1c. LOC Commands (Open \T\ Closes Eyes/Animal Control Officer) - 0(Both) 2. Best Gaze (Lateral Gaze Paresis) - 0(Normal) 3. Visual Field Loss - 0(No visual loss) 4. Facial Palsy - 0(Normal) 5a. Left Arm: Motor (10-second hold) - 0(No drift) 5b. Right Arm: Motor (10-second hold) - 0(No drift) 6a. Left Leg: Motor (5-second hold - always test supine) - 0(No drift) 6b. Right Leg: Motor (5-second hold - always test supine) - 0(No drift) 7. Limb Ataxia (finger/nose \T\ heel/vincent - test with eyes open) - 0(Absent) 8. Sensory Loss (pinprick arms/legs/face) - 0(Normal) 9. Best Language: Aphasia (description/naming/reading) - 1(Mild to moderate aphasia) 10. Dysarthria (speech clarity - read or repeat words) - 2(Severe) 11. Extinction and Inattention (visual/tactile/auditory/spatial/personal) - 0(No abnormality) Initials: as6 NIH Stroke Scale - NIH Stroke Score Date: 07/27/2022 Time: 22:24 Total Score = 3 1a. Level of Consciousness (LOC) - 0(Alert) 1b. Level of Consciousness (LOC) (Month \T\ Age) - 1(One) 1c. LOC Commands (Open \T\ Closes Eyes/Animal Control Officer) - 0(Both) 2. Best Gaze (Lateral Gaze Paresis) - 0(Normal) 3. Visual Field Loss - 0(No visual loss) 4. Facial Palsy - 0(Normal) 5a. Left Arm: Motor (10-second hold) - 0(No drift) 5b. Right Arm: Motor (10-second hold) - 0(No drift) 6a. Left Leg: Motor (5-second hold - always test supine) - 0(No drift) 6b. Right Leg: Motor (5-second hold - always test supine) - 0(No drift) 7. Limb Ataxia (finger/nose \T\ heel/vincent - test with eyes open) - 0(Absent) 8. Sensory Loss (pinprick arms/legs/face) - 0(Normal) 9. Best Language: Aphasia (description/naming/reading) - 1(Mild to moderate aphasia) 10. Dysarthria (speech clarity - read or repeat words) - 1(Mild to Moderate) 11. Extinction and Inattention (visual/tactile/auditory/spatial/personal) - 0(No abnormality) Initials: as6 Signatures: Dispatcher [employer] Shefali Slade RN RN bb Burt Dumas ds4 Maggy Carmona tw5 Darrell Schwartz RN RN as6 Aparna Kim MD MD sd2 Maggy Carmona tw5 Corrections: (The following items were deleted from the chart) 07/27 20:16 20:07 BP 175 / 90; Pulse 75bpm; Resp 16bpm; Spontaneous; Pulse Ox 100% RA; 63.5 bb kg Reported; Height 5 ft. 4 in. Reported; BMI: 24.0; bb 22:24 20:45 The patient has not been NPO before screening. The patient is currently as6 on the following diet: regular The patient is alert, able to follow commands. The patient exhibits slurred or garbled speech. The patient is exhibiting difficulty speaking. The patient does not exhibit difficulty understanding words. The patient is able to swallow own secretions with no drooling or need for suction. as6
--- NOTE | 2022-07-27 22:08 | RAD REPORT ---
EXAM DESCRIPTION: RADChest Single View07/27/2022 9:31 pm CLINICAL HISTORY: stroke COMPARISON: Chest Pa And Lat (2 Views) dated 03/31/2020; Chest Pa And Lat (2 Views) dated 09/06/2016; Ct Stroke Brain Wo Cont dated 07/27/2022 TECHNIQUE: Portable AP view of the chest. FINDINGS: Somewhat decreased inspiratory effort, which limits evaluation. The lungs are clear. No pn eumothorax or effusion. The cardiomediastinal contours are unremarkable. IMPRESSION: No acute cardiopulmonary process.
[2022-07-27 22:33] LABS: SARS-CoV-2 Antigen Rapid Res Negative (Negative)
[2022-07-28 02:39] VITALS: O2SAT 100
[2022-07-28 02:42] VITALS: BP 159/57
--- NOTE | 2022-07-30 12:44 | EKG ---
Test Date: 2022-07-27 Test Time: 20:44:01 [employer] Technical Director: SOFI MEASUREMENT RESULTS: Intervals: Rate: 80 ID: [id number] QRSD: 104 QT: 456 QTc: 525 [place]: P: 65 ID: [id number] QRS: 26 T: 86 INTERPRETIVE STATEMENTS: Normal sinus rhythm Lateral infarct, age undetermined Prolonged QT Abnormal ECG Compared to ECG 09/06/2016 13:28:38 Myocardial infarct finding now present Prolonged QT interval now present Electronically Signed On 07-30-22 12:38:00 DEOILING MACHINE OPERATOR by Roosevelt Hinkle
== END 2022-07-28 01:47 | disposition short-term general hospital (02) ==
LOC: ER 19:59
DX: I63.9 Cerebral infarction, unspecified (principal); R29.705 NIHSS score 5; E11.22 Type 2 diabetes mellitus with diabetic chronic kidney disease; I12.0 Hypertensive chronic kidney disease with stage 5 chronic kidney disease or end stage renal disease; N18.6 End stage renal disease; Z99.2 Dependence on renal dialysis; Z79.4 Long term (current) use of insulin; Z20.822 Contact with and (suspected) exposure to COVID-19
CPT/HCPCS: 96365; 92977; 93005; 85025; 80048; 36415; 83735; 85610; 82565; 80076; 85730; 84484; 70496; 70498; 70450; 71045; 99291; 99292; 96366; 87811; Q9967; J3101